=== PATIENT | female | born 1995 ===

== ENCOUNTER 2018-04-19 22:59 | Emergency (ER) | payer SELFPAY ==
[2018-04-19 23:20] VITALS: BP 123/72; PULSE 130; RESP 20; TEMP 100.3; O2SAT 97
--- NOTE | 2018-04-19 23:38 | C.PDOC ---
History Of Present Illness 22 year old female presents to the ER with sore throat, fever, and body aches. She took some tylenol with no relief. Denies cough, sick contact, or recent travel. Time Seen by Provider: 04/19/18 23:24 Chief Complaint (Nursing): Flu-like Symptoms History Per: Patient History/Exam Limitations: no limitations Onset/Duration Of Symptoms: Days Current Symptoms Are (Timing): Still Present Location Of Pain: None Associated Symptoms: Fever, Sore Throat, Myalgias. denies: Cough Ear Symptoms: Bilateral: None Recent travel outside of the [place]: No Past Medical History Reviewed: Historical Data, Nursing Documentation, Vital Signs Vital Signs: Last Vital Signs Temp 100.3 F H 04/19/18 23:16 Pulse 130 H 04/19/18 23:16 Resp 20 04/19/18 23:16 BP 123/72 04/19/18 23:16 Pulse Ox 97 04/19/18 23:16 Family History: States: No Known Family Hx - Social History Hx Alcohol Use: No Hx Substance Use: No - Immunization History Hx Tetanus Toxoid Vaccination: No Hx Influenza Vaccination: No Hx Pneumococcal Vaccination: No Review Of Systems Constitutional: Positive for: Fever ENT: Positive for: Throat Pain. Negative for: Ear Pain, Nose Discharge, Nose Congestion Respiratory: Negative for: Cough Musculoskeletal: Positive for: Other (Body aches) Physical Exam - Physical Exam Appears: Non-toxic Skin: Normal Color, Warm Head: Atraumatic, Normacephalic Eye(s): bilateral: Normal Inspection Ear(s): Bilateral: Normal Nose: Normal Oral Mucosa: Moist Throat: Other (Enlarged tonsils with exudates, patent airway, uvula midline, able to swallow saliva. No muffled voice.) Neck: Normal ROM, No Midline Cervical Tenderness, No Paracervical Tenderness, Supple Lymphatic: No Adenopathy Neurological/Psych: Oriented x3, Normal Speech, Normal Cranial Nerves (Grossly intact) ED Course And Treatment O2 Sat by Pulse Oximetry: 97 (Room air) Pulse Ox Interpretation: Normal Medical Decision Making Medical Decision Making: Patient dc on amoxicillin, advised to talk motrin for fever and follow up with primary. Disposition Counseled Patient/Family Regarding: Diagnosis, Need For Followup, Rx Given - Disposition Disposition: HOME/ ROUTINE Disposition Time: 23:36 Condition: STABLE Additional Instructions: Linda ibuprofeno 600 [address] carlie veces al da segn sea necesario para el dolor. Prescriptions: Amoxicillin 500 mg PO TID #21 tablet Ibuprofen [Motrin Tab] 600 mg PO TID #21 tab Instructions: Sore Throat, Adult (DC) Forms: Gen Discharge Inst [place]ican, [employer] ([place]ican) Print Language: TAJIK - Clinical Impression Clinical Impression: Acute tonsillitis - PA / COUNTER HELP / Resident Statement MD/DO has reviewed & agrees with the documentation as recorded. - Scribe Statement The provider has reviewed the documentation as recorded by the Scribjani Morrell All medical record entries made by the Laurenibjani were at my direction and personally dictated by me. I have reviewed the chart and agree that the record accurately reflects my personal performance of the history, physical exam, medical decision making, and the department course for this patient. I have also personally directed, reviewed, and agree with the discharge instructions and disposition.
== END 2018-04-19 23:51 | disposition home or self-care (01) ==
LOC: C.ER 22:59
DX: J03.90 Acute tonsillitis, unspecified (principal)